=== PATIENT | male | born 1955 | race Caucasian/White ===

== ENCOUNTER 2017-10-06 22:57 | Emergency (ER) | payer OTHER ==
[~2017-10-06 22:57] MED LIST: IBUPROFEN; JANUVIA; METOPROLOL; PLAV PO; VICODIN
[2017-10-07 03:53] LABS: BASOPHIL % 0.4 % (0-2); PLATELET COUNT 319 x10^3mcL (130-400); RED CELL DISTRIBUTION WIDTH 13.7 % (11.5-14.5)
[2017-10-07 04:14] LABS: CALCIUM 8.6 mg/dL (8.5-10.1); CARBON DIOXIDE 29.6 mmol/L (21-32); CHLORIDE SERUM 102 mmol/L (98-107); GFR1 > 60 mL/min; GLUCOSE SERUM 286 mg/dL (74-106); POTASSIUM SERUM 3.8 mmol/L (3.5-5.1); SODIUM SERUM 138 mmol/L (136-145)
[2017-10-07 04:18] LABS: ALKALINE PHOSPHATASE 92 U/L (46-116); ALT/SGPT 62 U/L (16-63); AST/SGOT 27 U/L (15-37); BILIRUBIN TOTAL 0.3 mg/dL (0.20-1.00); TOTAL PROTEIN, SERUM 7.8 g/dL (6.4-8.2)
[2017-10-07 04:20] LABS: C REACTIVE PROTEIN < 0.2 mg/dL (<=0.9)
[2017-10-07 04:47] LABS: ERYTHROCYTE SED RATE 20 mm/hr (0-20)
[2017-10-07 07:20] VITALS: BP 120/65
== END 2017-10-07 07:20 | disposition home or self-care (01) ==
LOC: ED 22:57
PROVIDERS: Emergency Medicine
DX: S80.812A Abrasion, left lower leg, initial encounter (principal); L03.116 Cellulitis of left lower limb; J02.9 Acute pharyngitis, unspecified; E11.9 Type 2 diabetes mellitus without complications; W22.8XXA Striking against or struck by other objects, initial encounter; Y93.89 Activity, other specified; Y99.8 Other external cause status; Y92.830 Public park as the place of occurrence of the external cause
CPT/HCPCS: 36415; 87804; J1885; Q0092

== ENCOUNTER 2017-10-10 13:25 | Inpatient (IN) | payer OTHER ==
[~2017-10-10] VITALS: Ht 167.6 cm; Wt 91.6 kg
[2017-10-10 13:29] VITALS: Ht 167.6 cm; Wt 91.6 kg
[2017-10-10 16:50] LABS: PLATELET COUNT 375 x10^3mcL (130-400); RED CELL DISTRIBUTION WIDTH 12.5 % (11.5-14.5)
[2017-10-10 16:51] LABS: BASOPHIL % 2.2 % (0-2)
[2017-10-10] MEDS ORDERED: LANTUS SOLOS100 U/M1 SQ (17:04)
[2017-10-10] MEDS ORDERED: JANUVIA100 M1 (17:04)
[2017-10-10] MEDS ORDERED: AMOXICILLIN250 MG (17:04)
[2017-10-10] MEDS ORDERED: ACARBOSE25 MG (17:04)
[2017-10-10] MEDS ORDERED: GLUCOPHAGE500 MG (17:04)
[2017-10-10 17:09] LABS: CALCIUM 9.2 mg/dL (8.5-10.1); CARBON DIOXIDE 25.2 mmol/L (21-32); CHLORIDE SERUM 102 mmol/L (98-107); CREATININE SERUM 0.9 mg/dL (0.7-1.3); GFR1 > 60 mL/min; GLUCOSE SERUM 150 mg/dL (74-106); POTASSIUM SERUM 3.9 mmol/L (3.5-5.1); SODIUM SERUM 139 mmol/L (136-145)
[2017-10-10 17:16] LABS: CK-MB 4.9 ng/mL (0-3.6)
[2017-10-10 17:20] LABS: ALBUMIN 4.2 g/dL (3.4-5.0); ALKALINE PHOSPHATASE 94 U/L (46-116); ALT/SGPT 30 U/L (16-63); AST/SGOT 34 U/L (15-37); BILIRUBIN TOTAL 0.56 mg/dL (0.20-1.00)
[2017-10-10 17:36] LABS: TOTAL PROTEIN, SERUM 8.3 g/dL (6.4-8.2)
[2017-10-10 17:50] VITALS: BP 118/63
[2017-10-10 17:51] VITALS: BP 118/63
[2017-10-10 17:56] LABS: MAGNESIUM 1.9 mg/dL (1.8-2.4); PHOSPHOROUS 3.1 mg/dL (2.5-4.9)
[2017-10-10 18:26] LABS: CHOLESTEROL/HDL RATIO 3.4
[2017-10-10 20:26] VITALS: BP 107/53
[2017-10-10 20:29] LABS: T3 TOTAL 0.89 ng/mL
[2017-10-10 20:32] LABS: FREE T4 0.83 ng/dL (0.76-1.46); FREE THYROXINE INDEX 1.8 ug/dL (1.4-4.5); T4(THYROXINE) 5.7 ug/dL (4.7-13.3)
[2017-10-10 20:57] VITALS: BP 127/64
[2017-10-11 00:47] LABS: microscopic required? NO
[2017-10-11 01:07] LABS: urine erythrocyte NEGATIVE (NEGATIVE)
[2017-10-11 01:19] LABS: AMPHETAMINE QUAL UR NONE DETECTED (NEG <=1000)
[2017-10-11 05:31] VITALS: BP 118/62
[2017-10-11 07:46] LABS: BASOPHIL % 0.4 % (0-2); PLATELET COUNT 283 x10^3mcL (130-400); RED CELL DISTRIBUTION WIDTH 13.5 % (11.5-14.5)
[2017-10-11 07:51] LABS: CALCIUM 8.2 mg/dL (8.5-10.1); CARBON DIOXIDE 26.8 mmol/L (21-32); CHLORIDE SERUM 106 mmol/L (98-107); CREATININE SERUM 0.8 mg/dL (0.7-1.3); GFR1 > 60 mL/min; GLUCOSE SERUM 92 mg/dL (74-106); MAGNESIUM 1.7 mg/dL (1.8-2.4); PHOSPHOROUS 3.5 mg/dL (2.5-4.9); POTASSIUM SERUM 3.8 mmol/L (3.5-5.1); SODIUM SERUM 142 mmol/L (136-145)
[2017-10-11 10:00] VITALS: BP 117/69
[2017-10-11 18:05] VITALS: BP 126/60
[2017-10-11 20:49] VITALS: BP 124/69
[2017-10-12 05:36] VITALS: BP 112/63
[2017-10-12 06:15] LABS: CALCIUM 8.2 mg/dL (8.5-10.1); CHLORIDE SERUM 105 mmol/L (98-107); CREATININE SERUM 0.8 mg/dL (0.7-1.3); GFR1 > 60 mL/min; GLUCOSE SERUM 80 mg/dL (74-106); MAGNESIUM 1.8 mg/dL (1.8-2.4); POTASSIUM SERUM 3.8 mmol/L (3.5-5.1); SODIUM SERUM 140 mmol/L (136-145)
[2017-10-12 07:07] LABS: BASOPHIL % 0.5 % (0-2); PLATELET COUNT 301 x10^3mcL (130-400); RED CELL DISTRIBUTION WIDTH 13.9 % (11.5-14.5)
[2017-10-12 09:37] VITALS: BP 132/62
[2017-10-12 10:35] VITALS: BP 126/62
[2017-10-12] MEDS ORDERED: CLEOCIN HCL300 MG PO (12:30)
[2017-10-12] MEDS ORDERED: BD LACTINEX1.4 MG PO (12:31)
[2017-10-12] MEDS ORDERED: NORCO1 TA2 PO (12:32)
[2017-10-12] MEDS ORDERED: COLACE100 MG PO (12:32)
[2017-10-12 13:32] VITALS: BP 126/62
== END 2017-10-12 14:40 | disposition home or self-care (01) | DRG 571 ==
LOC: ED 13:25 → DU 16:59 → MU 16:59 → DU 17:34 → MU 10-11 07:57
PROVIDERS: Emergency Medicine; Family Medicine
PROC: 0JBN0ZZ Excision of Right Lower Leg Subcutaneous Tissue and Fascia, Open Approach (ICD-10-PCS; principal; 2017-10-11)
DX: L03.115 Cellulitis of right lower limb (principal); L97.811 Non-pressure chronic ulcer of other part of right lower leg limited to breakdown of skin; D68.69 Other thrombophilia; E11.622 Type 2 diabetes mellitus with other skin ulcer; E11.65 Type 2 diabetes mellitus with hyperglycemia; E83.42 Hypomagnesemia; I25.10 Atherosclerotic heart disease of native coronary artery without angina pectoris; M19.90 Unspecified osteoarthritis, unspecified site; E78.1 Pure hyperglyceridemia; Z79.4 Long term (current) use of insulin; Z68.34 Body mass index [BMI] 34.0-34.9, adult; Z87.891 Personal history of nicotine dependence; Z79.84 Long term (current) use of oral hypoglycemic drugs; Z95.5 Presence of coronary angioplasty implant and graft
CPT/HCPCS: 82962; 83880; 84439; J1644; J1815; J1885; J2001; J2543; J3490; J7030; Q0092

== ENCOUNTER 2018-08-28 07:37 | Day surgery (SDC) | payer OTHER ==
[~2018-08-28] VITALS: Ht 167.6 cm; Wt 98.9 kg
[~2018-08-28 07:37] MED LIST changes: +ACARBOSE25 MG; +AMOXICILLIN250 MG; +BD LACTINEX1.4 MG PO; +CLEOCIN HCL300 MG PO; +COLACE100 MG PO; +GLUCOPHAGE500 MG; +JANUVIA100 M1; +LANTUS SOLOS100 U/M1 SQ; +NORCO1 TA2 PO
[2018-08-28 08:21] VITALS: BP 138/70
[2018-08-28 11:52] VITALS: BP 140/80
== END 2018-08-28 11:35 | disposition home or self-care (01) ==
LOC: DS 07:37 → OR 08:30 → GI 08:30 → DS 11:35
PROVIDERS: Internal Medicine
PROC: 0DBN8ZZ Excision of Sigmoid Colon, Via Natural or Artificial Opening Endoscopic (ICD-10-PCS; 2018-08-28)
PROC: 0DBL8ZZ Excision of Transverse Colon, Via Natural or Artificial Opening Endoscopic (ICD-10-PCS; 2018-08-28)
PROC: 0DB48ZX Excision of Esophagogastric Junction, Via Natural or Artificial Opening Endoscopic, Diagnostic (ICD-10-PCS; principal; 2018-08-28 08:30)
PROC: 0DB68ZX Excision of Stomach, Via Natural or Artificial Opening Endoscopic, Diagnostic (ICD-10-PCS; 2018-08-28 08:30)
DX: K29.50 Unspecified chronic gastritis without bleeding (principal); K20.9 Esophagitis, unspecified; K22.70 Barrett's esophagus without dysplasia; K21.9 Gastro-esophageal reflux disease without esophagitis; K57.30 Diverticulosis of large intestine without perforation or abscess without bleeding; D12.3 Benign neoplasm of transverse colon; D12.5 Benign neoplasm of sigmoid colon; K64.8 Other hemorrhoids; I25.10 Atherosclerotic heart disease of native coronary artery without angina pectoris; Z95.5 Presence of coronary angioplasty implant and graft; Z12.11 Encounter for screening for malignant neoplasm of colon
CPT/HCPCS: 43235; 45378; 82962; G0500; J1200; J1610; J2250; J2310; J3010; J3490

== ENCOUNTER 2019-05-05 11:52 | Emergency (ER) | payer OTHER ==
[~2019-05-05] VITALS: Ht 167.6 cm; Wt 100.2 kg
[2019-05-05 11:59] VITALS: Ht 167.6 cm; Wt 100.2 kg
[2019-05-05 12:38] VITALS: BP 128/64
== END 2019-05-05 12:38 | disposition home or self-care (01) ==
LOC: ED 11:52
DX: R22.32 Localized swelling, mass and lump, left upper limb (principal); M79.622 Pain in left upper arm; E11.9 Type 2 diabetes mellitus without complications